=== PATIENT | female | born 1960 | race Native Hawaiian/Other Pacific Islander ===

== ENCOUNTER 2018-06-25 07:29 | Outpatient (CLI) | payer OTHER | END 2018-06-25 07:30 | disposition home or self-care (01) | LOC: C.CARD 07:29 ==

== ENCOUNTER 2018-07-18 07:36 | Outpatient (CLI) | payer OTHER | END 2018-07-18 07:37 | disposition home or self-care (01) | LOC: C.MRIC 07:36 ==